=== PATIENT | female | born 1975 | race Caucasian/White ===

== ENCOUNTER 2022-02-14 23:05 | Emergency (ER) | payer OTHER, SELFPAY ==
[2022-02-14 23:19] VITALS: BP 135/78; PULSE 89; RESP 16; TEMP 36.4; O2SAT 99; BMI 20.2
--- NOTE | 2022-02-14 23:20 | CRLHL7_ITS ---
For Patients: As a result of the Century Cures Act, medical imaging exams and procedure reports are released immediately into your electronic medical record. You may view this report before your referring provider. If you have questions, please contact your health care provider. INDICATION: Abdominal pain. TECHNIQUE: CT abdomen and pelvis without contrast. COMPARISON: None. FINDINGS: Lower chest: Unremarkable. Liver: Normal in size. Hepatic steatosis. No suspicious masses. Gallbladder and bile ducts: No stones or inflammation. No biliary dilatation. Pancreas: Unremarkable. No mass or inflammation. Spleen: Normal in size. No masses. Adrenal glands: Normal in size. No nodules. Kidneys: Normal in size. No suspicious masses, stones, or hydronephrosis. GI tract: Unremarkable. Normal in caliber. No sign of mass or inflammation. Normal appendix. Vasculature: Abdominal aorta is normal in caliber. Lymph nodes: No lymphadenopathy. Peritoneum/Abdominal Wall: Unremarkable. No sign of mass or infiltration. No free air or significant free fluid. Pelvis: Unremarkable. No pelvic masses. Bones: Unremarkable for age. IMPRESSION: No acute intra-abdominal process identified. Please note that all CT scans at this facility use dose modulation, iterative reconstruction, and/or weight-based dosing when appropriate to reduce radiation dose to as low as reasonably achievable. Dictated by Sana Galvan MD @ 02/15/2022 12:17:05 AM (Electronically Signed)
--- NOTE | 2022-02-14 23:21 | ED_ITS ---
HPI - Abdominal Pain General Chief Complaint: Abdominal Pain Stated Complaint: pelvic pain after ultra sound Time Seen by Provider: 02/14/22 23:13 History of Present Illness HPI narrative: Patient is a 46-year-old woman who presents with acute worsening of abdominal pain after trans vaginal ultrasound earlier today. Patient had her ultrasound done in [place]. She is moving to [place] and present to the hospital today for further evaluation. She has had no vaginal bleeding no change in her bowel or bladder. No change in her appetite. No nausea no vomiting no fevers no chills. The abdominal pain is low and is extending into the pelvis. Related Data Home Medications Medication Instructions Recorded Confirmed hydroxyzine pamoate PO PRN 02/14/22 Allergies Allergy/AdvReac Type Severity Reaction Status Date / Time No Known Drug Allergies Allergy Verified 02/14/22 23:23 Review of Systems Status of ROS Reports: 10 or more systems reviewed and unremarkable except as noted in History and below [facility] Medical History (Updated 02/15/22 @ 00:22 by Manas Temple MD) Anxiety Surgical History (Updated 02/14/22 @ 23:25 by Kris Lin RN) No significant past surgical history Social History Smoking Status: Never smoker Do you use any of these nicotine containing products: None How often do you have a drink containing alcohol: never How often do you have six or more drinks on one occasion: Never AUDIT-C Alcohol total score: 0 Non-prescribed substance use: crack/cocaine Exam Narrative: Exam Narrative: EXAM GENERAL: Patient appears comfortable and well. EYES: No scleral icterus. LYMPH: No supraclavicular or cervical lymphadenopathy. SKIN: Visible skin seen during exam normal or with benign process only. EXT: No dependent lower extremity pedal edema. HEART: Regular rate and rhythm with no murmurs, rubs, or gallops. LUNGS: Clear to auscultation bilaterally with no crackles or wheezes. ABD: Soft, non tender, non distended. PSYCH: Good eye contact, speech is not pressured. Const: Vital Signs, click to edit/add: Vital Signs - 24 hr 02/14/22 23:19 Temperature 97.6 F Pulse Rate [Right Pulse Oximeter] 89 Respiratory Rate 16 Blood Pressure [Ri ght Upper Arm] 135/78 Pulse Oximetry 99 Oxygen Delivery Me thod Room Air Course Course Hospital Course: CT of the abdomen and pelvis pending. Due to the shortage of IV contrast will be proceeding without contrast. Reevaluation(s) Reevaluation #1: Reviewed results of CT scan which are normal. Patient still having severe pain. Cause uncertain. Time: 00:20 Vital Signs Vital signs: Initial Vital Signs Temperature 97.6 F 02/14/22 23:19 Temperature Source Temporal Artery Scan 02/14/22 23:19 Pulse Rate 89 02/14/22 23:19 Respiratory Rate 16 02/14/22 23:19 Blood Pressure 135/78 02/14/22 23:19 Blood Pressure Mean 97 02/14/22 23:19 Blood Pressure Position Sitting 02/14/22 23:19 Pulse Oximetry 99 02/14/22 23:19 Oxygen Delivery Method 02/14/22 23:19 Vital Signs Temperature 97.6 F 02/14/22 23:19 Pulse Rate 89 02/14/22 23:19 Respiratory Rate 16 02/14/22 23:19 Blood Pressure 135/78 02/14/22 23:19 Pulse Oximetry 99 02/14/22 23:19 Oxygen Delivery Method 02/14/22 23:19 Temperature 97.6 F 02/14/22 23:19 Pulse Rate 89 02/14/22 23:19 Respiratory Rate 16 02/14/22 23:19 Blood Pressure 135/78 02/14/22 23:19 Pulse Oximetry 99 02/14/22 23:19 Oxygen Delivery Method 02/14/22 23:19 MDM - Abdominal Pain MDM Narrative Medical decision making narrative: Her case is difficult. Her workup is been in various locations. I do not believe she needs any blood work tonight. She may be having some pelvic inflammatory disease but does need follow-up for further evaluation with OBGYN. We did discuss treatment with pain control I did agree to limited supply of Tylenol 3. Discharge Plan Discharge Clinical Impression: Abdominal pain Patient Disposition: Home, Self-Care Condition: Stable Instructions: Abdominal Pain (ED) Additional Instructions: Tylenol #3 as directed Follow up with your doctor as scheduled Activity Level: No Restrictions Discharge Diet: Regular Prescriptions: No Action hydroxyzine pamoate [Vistaril] PO PRN Stand Alone [facility] Info Instructions
[2022-02-15 00:29] VITALS: BP 125/74; PULSE 78; RESP 14; TEMP 36.4; O2SAT 99
[2022-02-15 00:30] VITALS: BP 125/74; PULSE 78; RESP 14; TEMP 36.4
== END 2022-02-15 00:30 | disposition home or self-care (01) ==
PROVIDERS: Emergency Provider Internal Medicine
DX: R10.9 Unspecified abdominal pain (principal)
CPT/HCPCS: 74176; 99283; 99284